=== PATIENT | male | born 1955 | race Caucasian/White ===

== ENCOUNTER 2023-05-05 10:25 | Inpatient (IN) | payer OTHER, MEDICAID ==
[~2023-05-05] VITALS: Ht 180.3 cm; Wt 68.0 kg
[2023-05-05 10:30] VITALS: BP_SYST 152
[2023-05-05] MEDS ORDERED: FOLIC ACID 1 MG, THIAMINE HCL 100 MG, MAGNESIUM SULFATE 1 GM, MVI 10 ML in NACL 0.9% 1,... IV ONE (11:15)
[2023-05-05 11:48] LABS: BASOPHILS # (AUTO) 0.1 K/uL (0.0-0.2); BASOPHILS % (AUTO) 0.9 % (0.0-2.0); EOSINOPHILS # (AUTO) 0.1 K/uL (0.0-0.4); EOSINOPHILS % (AUTO) 0.9 % (0.0-4.0); HEMATOCRIT 26.7 % (36-54); HEMOGLOBIN 9.1 g/dL (14.0-18.0); LYMPHOCYTES % (AUTO) 14.9 % (20.5-51.5); MEAN CORPUSCULAR HEMOGLOBIN 32 pg (27-31); MEAN CORPUSCULAR HGB CONC 34 % (32-36); MEAN CORPUSCULAR VOLUME 94 fL (79.0-98.0); MONOCYTES # (AUTO) 1.2 K/uL (0.0-1.0); MONOCYTES % (AUTO) 17.3 % (1.7-9.3); NEUTROPHILS # (AUTO) 4.5 K/uL (1.8-7.7); PLATELET COUNT (AUTO) 183 K/uL (130-430); RED BLOOD CELL COUNT(AUTO) 2.85 MIL/uL (4.2-6.2); RED CELL DISTRIBUTION WIDTH 16.8 % (9.0-15.0); WHITE BLOOD COUNT (AUTO) 6.8 K/uL (4.8-10.8)
[2023-05-05 11:58] LABS: ALANINE AMINOTRANSFERASE 30 U/L (12-78); ALBUMIN 2.7 g/dL (3.4-4.8); ANION GAP 7 (5-15); ASPARTATE AMINOTRANSFERASE 73 U/L (10-37); CHLORIDE 92 mmol/L (98-107); CREATININE 0.95 mg/dL (0.55-1.30); GFR AFRICAN AMERICAN 102 mL/min (>90); GLUCOSE 116 mg/dL (70-99); PHOSPHORUS 2.9 mg/dL (2.7-4.5); TOTAL BILIRUBIN 1.3 mg/dL (0.0-1.0); UREA NITROGEN, BLOOD 12 mg/dL (8-21)
[2023-05-05 12:00] LABS: ALCOHOL, BLOOD < 3 mg/dL (<10)
[2023-05-05] MEDS ORDERED: THIAMINE HCL 100 MG, MAGNESIUM SULFATE 1 GM in NS 100 ML IV ONE (12:00)
[2023-05-05] MEDS ORDERED: FOLIC ACID 1 MG, MVI 10 ML in NACL 0.9% 1,000 ML IV ONE (12:00)
[2023-05-05] MEDS ORDERED: KCL 40 mEq in 100 mL (PREMIX) 100 ML IV ONE (12:15)
[2023-05-05] MEDS ORDERED: MAGNESIUM SULFATE 50 ML IV ONE (12:15)
[2023-05-05 12:45] LABS: BLOOD, URINE NEGATIVE (NEGATIVE); CLARITY/URINE CLEAR (CLEAR); GLUCOSE,URINE TRACE (NEGATIVE); KETONES,URINE TRACE (NEGATIVE); LEUKOCYTE ESTERASE ,URINE NEGATIVE (NEGATIVE); NITRITE, URINE NEGATIVE (NEGATIVE); PH,URINE 6.5 (5.0-8.0); PROTEIN URINE TRACE (NEGATIVE)
[2023-05-05] MEDS ORDERED: THIAMINE HCL 100 MG/ML VIAL ONE (13:00)
[2023-05-05] MEDS ORDERED: MAGNESIUM SULFATE 1 GM/2 ML VIAL ONE (13:00)
[2023-05-05] MEDS ORDERED: FOLIC ACID 5 MG/ML VIAL IV ONE (13:02)
[2023-05-05 13:04] LABS: UROBILINOGEN,URINE >=8 (0.2-1.0)
[2023-05-05 13:05] LABS: COLOR,URINE YELLOW (YELLOW)
[2023-05-05 13:08] LABS: BILIRUBIN,URINE 1+ (NEGATIVE)
[2023-05-05 13:44] LABS: BARBITURATE, URINE NEGATIVE (NEG <=200); BENZODIAZEPINE, URINE NEGATIVE (NEG <=150); CANNABINOID, URINE NEGATIVE (NEG <=50); COCAINE, URINE NEGATIVE (NEG <=150); METHAMPHETAMINES SCREEN,URINE NEGATIVE (NEG <=500); OPIATE, URINE NEGATIVE (NEG <=100); PHENCYCLIDINE SCREEN,URINE NEGATIVE (NEG <=25); UR TRICYCLIC ANTIDEPRESSANTS NEGATIVE (NEG <=300); URINE AMPHETAMINE NEGATIVE (NEG <=500); URINE METHADONE NEGATIVE (NEG <=200); URINE OXYCODONE SCREEN NEGATIVE (NEG <=100); URINE PROPOXYPHENE SCREEN NEGATIVE (NEG <=300)
[2023-05-05] MEDS ORDERED: ASPI-1155 PO (13:49)
[2023-05-05] MEDS ORDERED: CLOP75TA32 PO (13:49)
[2023-05-05] MEDS ORDERED: LIP80 PO (13:49)
[2023-05-05] MEDS ORDERED: LOSA50TA3 PO (13:49)
[2023-05-05] MEDS ORDERED: METO25TA6 PO (13:49)
[2023-05-05] MEDS: POTASSIUM CHLORIDE 20 mEq in 100 mL (PREMIX) 100 ML x 2 doses IV SCH ×2 (15:16→19:39)
[2023-05-05 16:13] VITALS: BP_SYST 159
[2023-05-05 20:00] VITALS: BP_SYST 139
[2023-05-05] MEDS ORDERED: HYDROcodone/ACETAMIN 5-325 MG TAB (NORCO/ VICODIN) PO PRN (20:00)
[2023-05-05] MEDS ORDERED: NALOXONE HCL 0.4 MG/ML AMP (NARCAN) IVP PRN ×2 (20:00)
[2023-05-05] MEDS ORDERED: ACETAMINOPHEN 325 MG TABLET PO PRN ×2 (20:00→20:15)
[2023-05-05] MEDS ORDERED: ONDANSETRON HCL 4 MG/2 ML VIAL IVP PRN (20:00)
[2023-05-05] MEDS ORDERED: HYDROcodone/ACETAMIN 10-325 MG TAB PO PRN (20:00)
[2023-05-05] MEDS ORDERED: FOLIC ACID 1 MG, THIAMINE HCL 100 MG, MAGNESIUM SULFATE 1 GM, MVI 10 ML in NACL 0.9% 1,... IV SCH (20:00)
[2023-05-06] VITALS: BP_SYST 133
[2023-05-06] MEDS: METOPROLOL TARTRATE 25 MG TABLET PO SCH ×3 (00:26→21:13)
[2023-05-06] MEDS: ATORVASTATIN 20 MG TABLET PO SCH ×2 (00:26→21:13)
[2023-05-06] MEDS: LORazepam 2 MG/ML VIAL IVP PRN ×4 (02:34→16:20)
[2023-05-06 06:38] VITALS: BP_SYST 118
[2023-05-06 07:49] LABS: ALBUMIN 2.2 g/dL (3.4-4.8); CREATININE 0.79 mg/dL (0.55-1.30); PHOSPHORUS 3.6 mg/dL (2.7-4.5); TOTAL BILIRUBIN 0.8 mg/dL (0.0-1.0)
[2023-05-06 08:00] VITALS: BP_SYST 119
[2023-05-06 08:22] LABS: CALCIUM 6.5 mg/dL (8.4-11.0)
[2023-05-06 08:42] LABS: BASOPHILS % (AUTO) 0.8 % (0.0-2.0); EOSINOPHILS # (AUTO) 0.1 K/uL (0.0-0.4); EOSINOPHILS % (AUTO) 2.4 % (0.0-4.0); HEMATOCRIT 23.7 % (36-54); LYMPHOCYTES # (AUTO) 0.9 K/uL (1.0-5.5); LYMPHOCYTES % (AUTO) 18.6 % (20.5-51.5); MEAN CORPUSCULAR HEMOGLOBIN 32 pg (27-31); MEAN CORPUSCULAR HGB CONC 34 % (32-36); MEAN CORPUSCULAR VOLUME 93 fL (79.0-98.0); MONOCYTES # (AUTO) 0.9 K/uL (0.0-1.0); MONOCYTES % (AUTO) 17.9 % (1.7-9.3); NEUTROPHILS % (AUTO) 60.3 % (40.0-70.0); PLATELET COUNT (AUTO) 186 K/uL (130-430); RED BLOOD CELL COUNT(AUTO) 2.54 MIL/uL (4.2-6.2); RED CELL DISTRIBUTION WIDTH 16.5 % (9.0-15.0)
[2023-05-06 08:51] LABS: WHITE BLOOD COUNT (AUTO) 4.9 K/uL (4.8-10.8)
[2023-05-06] MEDS ORDERED: FOLIC ACID 1 MG, THIAMINE HCL 100 MG, MAGNESIUM SULFATE 1 GM, MVI 10 ML in NACL 0.9% 1,... IV SCH (09:00)
[2023-05-06] MEDS: ASPIRIN 81 MG TAB.CHEW PO SCH (09:02)
[2023-05-06] MEDS: CLOPIDOGREL BISULFATE 75 MG TABLET PO SCH (09:03)
[2023-05-06] MEDS: LOSARTAN POTASSIUM 50 MG TABLET (COZAAR) PO SCH (09:03)
[2023-05-06] MEDS: FOLIC ACID 1 MG, MVI 10 ML in NACL 0.9% 1,000 ML IV SCH (09:12)
[2023-05-06] MEDS: THIAMINE HCL 100 MG, MAGNESIUM SULFATE 1 GM in NS 100 ML IV SCH (09:12)
[2023-05-06] MEDS ORDERED: POTASSIUM CHLORIDE 20 MEQ TAB.PRT.SR PO ONE (11:00)
[2023-05-06] MEDS ORDERED: CALCIUM CARBONATE 650 MG TABLET PO SCH (11:00)
[2023-05-06] MEDS ORDERED: CALCIUM 500 MG/TAB PO ONE (11:30)
[2023-05-06 12:58] VITALS: BP_SYST 114
[2023-05-06] MEDS ORDERED: THIAMINE HCL 100 MG, MAGNESIUM SULFATE 1 GM in NS 100 ML IV SCH (13:00)
[2023-05-06] MEDS ORDERED: FOLIC ACID 1 MG, MVI 10 ML in NACL 0.9% 1,000 ML IV SCH (13:00)
[2023-05-06 16:32] VITALS: BP_SYST 122
[2023-05-06] MEDS ORDERED: chlordiazePOXIDE HCL 25 MG CAPSULE PO ONE ×2 (18:00→18:15)
[2023-05-06] MEDS ORDERED: chlordiazePOXIDE HCL 25 MG CAPSULE ONE (18:17)
[2023-05-06 20:10] VITALS: BP_SYST 157
[2023-05-06] MEDS: chlordiazePOXIDE HCL 25 MG CAPSULE PO SCH (21:00)
[2023-05-06] MEDS: CALCIUM 500 MG/TAB PO SCH (21:13)
[2023-05-06] MEDS ORDERED: HALOPERIDOL LACTATE 5 MG/ML VIAL IM ONE (23:15)
[2023-05-07 06:54] LABS: BASOPHILS % (AUTO) 0.8 % (0.0-2.0); EOSINOPHILS # (AUTO) 0.1 K/uL (0.0-0.4); EOSINOPHILS % (AUTO) 2.7 % (0.0-4.0); HEMATOCRIT 23.9 % (36-54); HEMOGLOBIN 8.1 g/dL (14.0-18.0); LYMPHOCYTES # (AUTO) 0.9 K/uL (1.0-5.5); LYMPHOCYTES % (AUTO) 17.6 % (20.5-51.5); MEAN CORPUSCULAR HEMOGLOBIN 32 pg (27-31); MEAN CORPUSCULAR HGB CONC 34 % (32-36); MEAN CORPUSCULAR VOLUME 93 fL (79.0-98.0); MONOCYTES # (AUTO) 0.9 K/uL (0.0-1.0); MONOCYTES % (AUTO) 18.1 % (1.7-9.3); NEUTROPHILS # (AUTO) 3.2 K/uL (1.8-7.7); NEUTROPHILS % (AUTO) 60.8 % (40.0-70.0); PLATELET COUNT (AUTO) 246 K/uL (130-430); RED BLOOD CELL COUNT(AUTO) 2.57 MIL/uL (4.2-6.2); RED CELL DISTRIBUTION WIDTH 16.9 % (9.0-15.0); WHITE BLOOD COUNT (AUTO) 5.2 K/uL (4.8-10.8)
[2023-05-07 07:13] LABS: ALBUMIN 2.2 g/dL (3.4-4.8); CALCIUM 7.3 mg/dL (8.4-11.0); CREATININE 0.68 mg/dL (0.55-1.30); PHOSPHORUS 3.3 mg/dL (2.7-4.5); TOTAL BILIRUBIN 0.7 mg/dL (0.0-1.0)
[2023-05-07 08:00] VITALS: BP_SYST 163
[2023-05-07] MEDS ORDERED: PANTOPRAZOLE SODIUM 40 MG TAB PO ONE (09:30)
[2023-05-07] MEDS: chlordiazePOXIDE HCL 25 MG CAPSULE PO SCH ×2 (09:42→20:53)
[2023-05-07] MEDS: CLOPIDOGREL BISULFATE 75 MG TABLET PO SCH (09:42)
[2023-05-07] MEDS: CALCIUM 500 MG/TAB PO SCH ×2 (09:42→20:53)
[2023-05-07] MEDS: ASPIRIN 81 MG TAB.CHEW PO SCH (09:42)
[2023-05-07] MEDS: LOSARTAN POTASSIUM 50 MG TABLET (COZAAR) PO SCH (09:43)
[2023-05-07] MEDS: METOPROLOL TARTRATE 25 MG TABLET PO SCH ×2 (09:43→20:53)
[2023-05-07] MEDS: THIAMINE HCL 100 MG, MAGNESIUM SULFATE 1 GM in NS 100 ML IV SCH (09:45)
[2023-05-07] MEDS ORDERED: DIATR MEGLU/DIATRIZ SOD 30 ML SOLUTION PO ONE (09:47)
[2023-05-07] MEDS: FOLIC ACID 1 MG, MVI 10 ML in NACL 0.9% 1,000 ML IV SCH (09:50)
[2023-05-07 12:00] VITALS: BP_SYST 140
[2023-05-07] MEDS ORDERED: CITALOPRAM HYDROBROMIDE 20 MG TABLET PO ONE (12:00)
[2023-05-07] MEDS ORDERED: ESCITALOPRAM OXALATE 10 MG TABLET PO SCH (12:00)
[2023-05-07] MEDS: LORazepam 2 MG/ML VIAL IVP PRN (15:35)
[2023-05-07 16:00] VITALS: BP_SYST 112
[2023-05-07] MEDS: ATORVASTATIN 20 MG TABLET PO SCH (20:52)
[2023-05-07] MEDS ORDERED: GABAPENTIN 300 MG CAPSULE PO SCH (21:00)
[2023-05-08] MEDS: LORazepam 2 MG/ML VIAL IVP PRN ×2 (00:03→04:57)
[2023-05-08 01:06] VITALS: BP_SYST 167
[2023-05-08 06:37] LABS: BASOPHILS # (AUTO) 0.1 K/uL (0.0-0.2); BASOPHILS % (AUTO) 1.2 % (0.0-2.0); EOSINOPHILS # (AUTO) 0.1 K/uL (0.0-0.4); EOSINOPHILS % (AUTO) 2.4 % (0.0-4.0); LYMPHOCYTES # (AUTO) 0.8 K/uL (1.0-5.5); LYMPHOCYTES % (AUTO) 17.4 % (20.5-51.5); MEAN CORPUSCULAR HEMOGLOBIN 31 pg (27-31); MEAN CORPUSCULAR HGB CONC 33 % (32-36); MEAN CORPUSCULAR VOLUME 94 fL (79.0-98.0); MONOCYTES # (AUTO) 0.7 K/uL (0.0-1.0); PLATELET COUNT (AUTO) 277 K/uL (130-430); RED BLOOD CELL COUNT(AUTO) 2.55 MIL/uL (4.2-6.2); RED CELL DISTRIBUTION WIDTH 16.6 % (9.0-15.0); WHITE BLOOD COUNT (AUTO) 4.7 K/uL (4.8-10.8)
[2023-05-08 06:45] LABS: CALCIUM 7.4 mg/dL (8.4-11.0); CREATININE 0.84 mg/dL (0.55-1.30)
[2023-05-08 06:56] LABS: ALBUMIN 2.3 g/dL (3.4-4.8); BILIRUBIN,DIRECT 0.3 mg/dL (0.0-0.3); THYROID STIMULATING HORMONE 2.2 uIu/mL (0.34-4.82); TOTAL BILIRUBIN 0.4 mg/dL (0.0-1.0)
[2023-05-08] MEDS ORDERED: DIATR MEGLU/DIATRIZ SOD 30 ML SOLUTION PO ONE (07:07)
[2023-05-08] MEDS ORDERED: PANTOPRAZOLE SODIUM 40 MG TAB PO SCH (09:00)
[2023-05-08] MEDS ORDERED: CITALOPRAM HYDROBROMIDE 20 MG TABLET PO SCH (09:00)
[2023-05-08 09:27] LABS: TOTAL IRON BIND. CAPACITY 167 ug/dL (250-450)
[2023-05-08] MEDS: CLOPIDOGREL BISULFATE 75 MG TABLET PO SCH (11:04)
[2023-05-08] MEDS: ASPIRIN 81 MG TAB.CHEW PO SCH (11:04)
[2023-05-08] MEDS: chlordiazePOXIDE HCL 25 MG CAPSULE PO SCH (11:05)
[2023-05-08] MEDS: METOPROLOL TARTRATE 25 MG TABLET PO SCH (11:05)
[2023-05-08] MEDS: LOSARTAN POTASSIUM 50 MG TABLET (COZAAR) PO SCH (11:05)
[2023-05-08] MEDS: CALCIUM 500 MG/TAB PO SCH (11:05)
[2023-05-08 12:44] VITALS: BP_SYST 120
[2023-05-09] MEDS ORDERED: FOLIC ACID 1 MG TABLET PO SCH (09:00)
[2023-05-09] MEDS ORDERED: MULTIVITAMINS TAB 1 TABLET PO SCH (09:00)
[2023-05-09] MEDS ORDERED: THIAMINE HCL 100 MG TABLET PO SCH (09:00)
[2023-05-09 11:06] LABS: ALPHA-1-ANTITRYPSIN, S 168 mg/dL (101-187); FERRITIN 368 ng/mL (30-400)
[2023-05-09 12:06] LABS: HEPATITIS A AB, IgM Negative (Negative); HEPATITIS B CORE AB, IgM Negative (Negative); HEPATITIS B SURFACE AG Negative (Negative)
[2023-05-09 15:06] LABS: ANTI NUCLEAR AB WITH REFLEX Negative (Negative)
== END 2023-05-08 14:41 | disposition left against medical advice (07) | DRG 640 ==
LOC: SED 10:25 → STU 12:12 → SMU 15:58
PROVIDERS: ADMIT Preventive Medicine Preventive Medicine/Occupational Environmental Medicine; ATTEND Preventive Medicine Preventive Medicine/Occupational Environmental Medicine
DX: E86.0 Dehydration (principal); E43 Unspecified severe protein-calorie malnutrition; F23 Brief psychotic disorder; E87.6 Hypokalemia; E87.1 Hypo-osmolality and hyponatremia; D64.9 Anemia, unspecified; D72.819 Decreased white blood cell count, unspecified; E83.51 Hypocalcemia; E88.09 Other disorders of plasma-protein metabolism, not elsewhere classified; Z68.20 Body mass index [BMI] 20.0-20.9, adult; F32.A Depression, unspecified; F41.9 Anxiety disorder, unspecified; I25.10 Atherosclerotic heart disease of native coronary artery without angina pectoris; K57.90 Diverticulosis of intestine, part unspecified, without perforation or abscess without bleeding; R74.01 Elevation of levels of liver transaminase levels; K80.20 Calculus of gallbladder without cholecystitis without obstruction; L40.9 Psoriasis, unspecified; R73.9 Hyperglycemia, unspecified; F10.90 Alcohol use, unspecified, uncomplicated; I11.9 Hypertensive heart disease without heart failure; E83.42 Hypomagnesemia; F14.10 Cocaine abuse, uncomplicated; Z95.5 Presence of coronary angioplasty implant and graft
CPT/HCPCS: 36415; 71045; 76376; 80048; 80053; 80074; 80076; 80307; 81003; 82103; 82390; 82728; 83516; 83540; 83550; 83690; 83735; 84100; 84443; 84484; 85025; 85610-TC; 86038; 86376; 93005; 93306; 96365; 97110-GP; 97112-GP; 97116-GP; 97530-GP; 99285; G0482; J1630; J2060; J2405; J3411; J3475; J3480; J3490; J7030; Q9964